=== PATIENT | female | born 1985 | race Caucasian/White ===

== ENCOUNTER 2020-02-06 00:10 | Emergency (ER) | payer MEDICARE ==
[~2020-02-06] VITALS: Ht 165.1 cm; Wt 53.5 kg
[2020-02-06 00:20] VITALS: BP 135/80
--- NOTE | 2020-02-06 00:20 | NUR ---
ED Nurse Note: Patient brought into ED from home by KEITH DIN[facility] [id number] for c/o abdominal pain onset 01/31. Patient states pain radiates from R side abdomen to R flank/back area. She state that she has been unbable to eat food or liquids. She said taht she was unable to walk Per EMS she called 911 and met them in the hallway of her apartment for abdominal pain.
--- NOTE | 2020-02-06 00:28 | Emergency Room Report ---
History of Present Illness General Chief Complaint: Abdominal Pain Source: Patient, EMS Present Illness HPI Patient fell off a stool on Tuesday 2 days ago. She been having abdominal pain. It became more severe earlier today. She has not taken anything for pain at this time. The pain is right lower quadrant. Constant. She rates the pain 8-1/2-9/10 and states that she has a high pain tolerance. In addition she has PTSD and is feeling at some part of this is mental. She was evaluated by a visual lead group earlier today. They examined her but did no blood work. She feels dehydrated because she has not been eating well the last couple of days. She denies any fevers or chills. She has not had a menstrual cycle for long time because she has hormonally active IUD. She denies dysuria. There is no vomiting or diarrhea at this time. Denies exposure to COVID-19 positive contacts. No sore throat, chest pain, palpitations, nausea, vomiting, diarrhea, dysuria, shortness of breath, joint pain, rashes, visual changes, dizziness, headache. Allergies: Coded Allergies: FUROSEMIDE (Verified Allergy, Unknown, 02/06/20) COVID-19 Screening Contact w/high risk pt: No Experienced COVID-19 symptoms?: No COVID-19 Testing performed SWINE EXTENSION FIELD SPECIALIST: No Patient History Past Medical History: see triage record Social History: Reports: smoking Last Menstrual Period: unknown, has IUD Now: No Reviewed Nursing Documentation: PMH: Agreed; PSxH: Agreed Nursing Documentation-PMH Hx Cardiac Problems: Yes Hx Asthma: Yes Review of Systems All Other Systems: negative except mentioned in HPI Physical Exam Vital Signs Date Time Temp Pulse Resp B/P (MAP) Pulse Ox O2 Delivery O2 Flow Rate FiO2 02/06/20 00:10 98.2 92 20 136/82 (100) 98 Room Air Sp02 EP Interpretation: reviewed, normal General Appearance: well appearing, no apparent distress, GCS 15 Head: normocephalic Eyes: bilateral eye normal inspection, bilateral eye PERRL, bilateral eye EOMI ENT: moist mucus membranes Neck: supple Respiratory: lungs clear, normal breath sounds Cardiovascular #1: regular rate, rhythm Cardiovascular #2: 2+ radial (R) Gastrointestinal: normal inspection, normal bowel sounds, no mass, non- distended, no guarding, no rebound, tenderness - Reported right lower quadrant, other - Ink circles where pain was recorded Genitourinary: no CVA tenderness Musculoskeletal: back normal, normal range of motion, gait/station normal Neurologic: alert, oriented x3, grossly normal Psychiatric: mood/affect normal Skin: no rash, warm/dry Medical Decision Making Diagnostic Impression: Primary Impression: Ovarian cyst Qualified Codes: N83.201 - Unspecified ovarian cyst, right side Additional Impression: Abdominal wall strain Qualified Codes: S39.011A - Strain of muscle, fascia and tendon of abdomen, initial encounter ER Course Patient presents with right lower quadrant pain after initial injury. In addition to that she has increased pain at this time that she feels not related to the injury. Differential includes appendicitis, urinary tract infection, ovarian cyst amongst others. Evaluation with labs and x-ray. Treatment with IV hydration and Reglan with Benadryl and Toradol. White count normal. CMP unremarkable. Urinalysis clear. Pelvic ultrasound with ovarian cyst. Patient improved with treatment. Discussed findings with patient and the need for follow-up. Patient stable for outpatient observation and treatment. Laboratory Tests Test 02/06/20 00:40 White Blood Count 8.1 K/UL (4.8-10.8) Red Blood Count 4.26 M/UL (4.20-5.40) Hemoglobin 14.3 G/DL (12.0-16.0) Hematocrit 38.8 % (37.0-47.0) Mean Corpuscular Volume 91 FL (80-99) Mean Corpuscular Hemoglobin 33.6 PG (27.0-31.0) H Mean Corpuscular Hemoglobin Concent 36.9 G/DL (32.0-36.0) H Red Cell Distribution Width 12.7 % (11.6-14.8) Platelet Count 278 K/UL (150-450) Mean Platelet Volume 7.6 FL (6.5-10.1) Neutrophils (%) (Auto) 48.2 % (45.0-75.0) Lymphocytes (%) (Auto) 38.8 % (20.0-45.0) Monocytes (%) (Auto) 7.8 % (1.0-10.0) Eosinophils (%) (Auto) 3.7 % (0.0-3.0) H Basophils (%) (Auto) 1.5 % (0.0-2.0) Prothrombin Time 11.2 SEC (9.30-11.50) Prothrombin Time INR 1.0 (0.9-1.1) Activated Partial Thromboplast Time 28 SEC (23-33) Urine Color Yellow Urine Appearance Clear Urine pH 7 (4.5-8.0) Urine Specific [place] 1.015 (1.005-1.035) Urine Protein Negative (NEGATIVE) Urine Glucose (UA) Negative (NEGATIVE) Urine Ketones Negative (NEGATIVE) Urine Blood Negative (NEGATIVE) Urine Nitrite Negative (NEGATIVE) Urine Bilirubin Negative (NEGATIVE) Urine Urobilinogen Normal MG/DL (0.0-1.0) Urine Leukocyte Esterase Negative (NEGATIVE) Urine HCG, Qualitative Negative (NEGATIVE) Sodium Level 137 MMOL/L (136-145) Potassium Level 3.7 MMOL/L (3.5-5.1) Chloride Level 103 MMOL/L (98-107) Carbon Dioxide Level 29 MMOL/L (21-32) Anion Gap 5 mmol/L (5-15) Blood Urea Nitrogen 20 mg/dL (7-18) H Creatinine 0.9 MG/DL (0.55-1.30) Estimated Glomerular Filtration Rate > 60 mL/min (>60) Glucose Level 89 MG/DL (74-106) Calcium Level 8.3 MG/DL (8.5-10.1) L Total Bilirubin 1.1 MG/DL (0.2-1.0) H Direct Bilirubin 0.3 MG/DL (0.0-0.3) Aspartate Amino Transferase (AST) 23 U/L (15-37) Alanine Aminotransferase (ALT) 28 U/L (12-78) Alkaline Phosphatase 69 U/L (46-116) Total Protein 7.3 G/DL (6.4-8.2) Albumin 4.1 G/DL (3.4-5.0) Globulin 3.2 g/dL Albumin/Globulin Ratio 1.3 (1.0-2.7) Lipase 160 U/L (73-393) CT/MRI/US Diagnostic Results CT/MRI/US Diagnostic Results : Imaging Test Ordered: pelvic ultrasound Impression Verbal report of ovarian cyst. Official report normal. Last Vital Signs Date Time Temp Pulse Resp B/P (MAP) Pulse Ox O2 Delivery O2 Flow Rate FiO2 02/06/20 02:40 98.6 85 16 124/88 99 Room Air Status: improved Disposition: HOME, SELF-CARE Condition: Improved Scripts Acetaminophen (Tylenol) 325 Mg Tablet 650 MG ORAL Q6H PRN for Prn Pain/Headache/Temp > 101, #20 TAB 0 Refills Prov: Charles Russ MD 02/06/20 Ibuprofen* (MOTRIN*) 600 Mg Tablet 600 MG ORAL Q6H PRN for FOR PAIN, #16 TAB 0 Refills Prov: Charles Russ MD 02/06/20 Charles Russ MD Feb 06, 2020 00:28
[2020-02-06 00:47] LABS: BASOPHILS % (AUTO) 1.5 % (0.0-2.0); EOSINOPHILS % (AUTO) 3.7 % (0.0-3.0); HEMATOCRIT 38.8 % (37.0-47.0); HEMOGLOBIN 14.3 G/DL (12.0-16.0); LYMPHOCYTES % (AUTO) 38.8 % (20.0-45.0); MEAN CORPUSCULAR VOLUME 91 FL (80-99); MONOCYTES % (AUTO) 7.8 % (1.0-10.0); NEUTROPHILS % (AUTO) 48.2 % (45.0-75.0); PLATELET COUNT 278 K/UL (150-450); RED BLOOD COUNT 4.26 M/UL (4.20-5.40); RED CELL DISTRIBUTION WIDTH 12.7 % (11.6-14.8); WHITE BLOOD COUNT 8.1 K/UL (4.8-10.8)
[2020-02-06 00:48] LABS: APPEARANCE,URINE CLEAR; BILIRUBIN, URINE NEGATIVE (NEGATIVE); GLUCOSE, URINE (UA) NEGATIVE (NEGATIVE); KETONES,URINE NEGATIVE (NEGATIVE); LEUKOCYTE ESTERASE ,URINE NEGATIVE (NEGATIVE); NITRITE,URINE NEGATIVE (NEGATIVE); PH,URINE 7 (4.5-8.0); PROTEIN,URINE NEGATIVE (NEGATIVE); UROBILINOGEN,URINE NORMAL MG/DL (0.0-1.0)
[2020-02-06] MEDS: DiphenhydrAMINE 50mg/ml Inj IVP ONE (00:49)
[2020-02-06] MEDS: Metoclopramide 10mg/2ml Inj IVP ONE (00:49)
[2020-02-06] MEDS: Ketorolac 30mg Inj IV ONE (00:50)
[2020-02-06 00:53] LABS: COLOR,URINE YELLOW
[2020-02-06 01:01] LABS: ANION GAP 5 mmol/L (5-15); BLOOD UREA NITROGEN 20 mg/dL (7-18); CALCIUM 8.3 MG/DL (8.5-10.1); CARBON DIOXIDE 29 MMOL/L (21-32); CHLORIDE 103 MMOL/L (98-107); CREATININE 0.9 MG/DL (0.55-1.30); POTASSIUM 3.7 MMOL/L (3.5-5.1); SODIUM 137 MMOL/L (136-145)
[2020-02-06 01:11] LABS: ALANINE AMINOTRANSFERASE 28 U/L (12-78); ALBUMIN 4.1 G/DL (3.4-5.0); ALBUMIN/GLOBULIN RATIO 1.3 (1.0-2.7); ALKALINE PHOSPHATASE 69 U/L (46-116); ASPARTATE AMINO TRANSFERASE 23 U/L (15-37); BILIRUBIN,TOTAL 1.1 MG/DL (0.2-1.0)
[2020-02-06 01:14] LABS: BILIRUBIN,DIRECT 0.3 MG/DL (0.0-0.3)
--- NOTE | 2020-02-06 01:52 | Diagnostic Imaging Report ---
Transabdominal and endovaginal pelvic ultrasound History: Pelvic pain Findings: Uterus is anteverted measuring 5.9 x 4.8 x 2.7 cm. Normal endometrium at 3.3 mm. Endocervical area nabothian cyst is seen. Right ovary measures 2.1 x 1.2 x 1.8 cm. Normal Doppler color-flow. Physiologic right ovarian cyst. Left ovary measures 3.2 x 2.3 x 2.7 cm with normal Doppler color-flow. Impression: 1. No focal findings.
[2020-02-06] MEDS ORDERED: TYLENOL325 MG ORAL (02:35)
[2020-02-06] MEDS ORDERED: IBUPROFEN600 M1 ORAL (02:35)
[2020-02-06 02:40] VITALS: BP 124/88
--- NOTE | 2020-02-06 02:40 | NUR ---
ER DISCHARGE NOTE: Patient is cleared to be discharged per ERMD, pt is aox4, on room air, with stable vital signs. pt was given dc and prescription instructions, pt was able to verbalize understanding, pt id band and iv site removed without complications. pt is able to ambulate with steady gait. pt took all belongings. PT left in a private car via [employer].
== END 2020-02-06 02:40 | disposition home or self-care (01) ==
LOC: EDBD 00:10 → EMR 00:30
DX: N83.201 Unspecified ovarian cyst, right side (principal); S39.011A Strain of muscle, fascia and tendon of abdomen, initial encounter; J45.909 Unspecified asthma, uncomplicated; I51.9 Heart disease, unspecified; W17.89XA Other fall from one level to another, initial encounter; Y93.9 Activity, unspecified; Y92.9 Unspecified place or not applicable; Z88.8 Allergy status to other drugs, medicaments and biological substances
CPT/HCPCS: 36415; 76856; 80053; 81003; 81025; 82248; 83690; 85025; 85610; 85730; 96361; 96374; 96375; 99284; J1200; J1885; J2765; J7030